=== PATIENT | female | born 1965 | race Caucasian/White ===

== ENCOUNTER 2017-06-14 05:55 | Emergency (ER) | payer OTHER ==
[~2017-06-14] VITALS: Ht 162.6 cm; Wt 88.0 kg
[~2017-06-14 05:55] MED LIST: B-COTAB41 PO; CHOL1CAP24 PO; FLUO.05%ST TOP; MULT-65 PO; OXYC1SOL5 PO
[2017-06-14 05:56] VITALS: BP 120/70; PULSE 71; RESP 16; TEMP 97.8; O2SAT 100
[2017-06-14] MEDS ORDERED: TIZA4CAP3 PO (06:09)
[2017-06-14] MEDS ORDERED: OMEP20TA93 PO (06:09)
[2017-06-14] MEDS ORDERED: ZOLO100T PO (06:09)
[2017-06-14] MEDS ORDERED: HYDR-3516 PO (06:11)
[2017-06-14] MEDS ORDERED: DICL75TA PO (06:11)
[2017-06-14] MEDS ORDERED: ACETAMINOPHEN/HYDROcodone 325 MG/5 MG TAB PO ONE (06:15)
--- NOTE | 2017-06-14 06:16 | PD ---
HPI Chief Complaint: Back/ Neck Pain or Injury Time Seen by Provider: 06:03 Travel History International Travel<30 days: No Contact w/Intl Traveler<30days: No History of Present Illness HPI 52-year-old white female presents to emergency department with complains of lower back pain today. She states that in the last 24 hours she developed pain in her right lower back. She's had a history of left lower back pain with sciatica in the past. She also states that she's been battling some neck pain for last 1-2 weeks. She was seen by her primary care doctor approximately one week ago given Zanaflex. She states that she normally follows up with her chiropractor. She denies any acute bowel or bladder changes. She has had some nausea but no vomiting. She denies any focal numbness or tingling. Pain is moderate to Be severe with movement. No alleviating factors. PFSH Past Medical History Arthritis: Yes Autoimmune Disease: No Cancer: No Cardiovascular Problems: No High Cholesterol: No Diabetes: No Patient Takes Glucophage: No Diminished Hearing: No Endocrine: No GERD: Yes Glaucoma: No Genitourinary: No Hepatitis: No Hiatal Hernia: No Hypertension: No Immune Disorder: No Musculoskeletal: No Neurologic: No Psychiatric: No Reproductive: No Respiratory: No Immunizations Current: Yes Seizures: No Thyroid Disease: No Influenza Vaccination: Yes ?: Not Menopausal: Yes : 0 Past Surgical History Abdominal Surgery: Yes (GASTRIC BYPASS 2010 WITH HIATAL HERNIA REPAIR) AICD: No Body Medical Devices: NONE Cardiac Surgery: No Cholecystectomy: Yes Ear Surgery: No Endocrine Surgery: No Eye Surgery: No Genitourinary Surgery: No Gynecologic Surgery: Yes (UTERINE ABLATION 2008) Joint Replacement: Yes Oral Surgery: Yes (TONSILLECTOMY/ADENOIDECTOMY) Pacemaker: No Thoracic Surgery: No Tonsillectomy: Yes Other Surgery: Yes Social History Alcohol Use: No Tobacco Use: No Substance Use: No Allergies-Medications (Allergen,Severity, Reaction): Coded Allergies: ciprofloxacin (Unverified Allergy, Severe, Rash, 06/14/17) Reported Meds & Prescriptions Reported Meds & Active Scripts Active Diclofenac Sodium DR (Diclofenac Sodium) 75 Mg Tabdr 75 Mg PO BID Hydrocodone-Acetaminophen 5-325 mg Tab 1 Tab PO Q4H PRN 5 Days Reported Omeprazole 20 Mg Tab 20 Mg PO BID Tizanidine (Tizanidine HCl) 4 Mg Cap 4 Mg PO BID Zoloft (Sertraline HCl) 100 Mg Tab 100 Mg PO DAILY Review of Systems General / Constitutional: No: Fever Eyes: No: Visual changes HENT: No: Headaches Cardiovascular: No: Chest Pain or Discomfort Respiratory: No: Shortness of Breath Gastrointestinal: Positive: Nausea, No: Vomiting, Abdominal Pain Genitourinary: No: Dysuria Musculoskeletal: Positive: Arthralgias, Limited ROM, Cramping, Pain, No: Edema Skin: No Rash Neurologic: No: Weakness Psychiatric: No: Depression Endocrine: No: Polydipsia Hematologic/Lymphatic: No: Easy Bruising Physical Exam Narrative GENERAL: Well-developed, well-nourished in no acute distress. Nontoxic appearing. HEAD: Normocephalic, atraumatic. EYES: Pupils equal round and reactive. Extraocular motions intact. No scleral icterus. No injection or drainage. ENT: TMs clear without erythema. The external auditory canals clear. Nose: clear . Posterior pharynx is pink and moist. No tonsillar edema or exudate. Uvula midline. Airway patent. NECK: Trachea midline.Supple, nontender, moves head freely. No central bony tenderness or spasm. CARDIOVASCULAR: Regular rate and rhythm without murmurs, gallops, or rubs. RESPIRATORY: Clear to auscultation. Breath sounds equal bilaterally. No wheezes , rales, or rhonchi. GASTROINTESTINAL: Abdomen soft, non-tender, nondistended. No hepato-splenomegaly , or palpable masses. No guarding. EXTREMITIES: No clubbing, cyanosis, or edema. No joint tenderness, effusion, or edema noted. BACK: No central bony tenderness, without deformity or crepitance. No flank tenderness. Patient complains of right lower paralumbar tenderness and no saddle anesthesia. Neurovascular intact. Data Data Last Documented VS Vital Signs Date Time Temp Pulse Resp B/P (MAP) Pulse Ox O2 Delivery O2 Flow Rate FiO2 06/14/17 05:56 97.8 71 16 120/70 (87) 100 Room Air Orders Orders Acetamin-Hydrocod 325-5 Mg ([place] 5-325 (06/14/17 06:15) Ed Discharge Order (06/14/17 06:11) MDM Medical Decision Making Medical Screen Exam Complete: Yes Emergency Medical Condition: Yes Medical Record Reviewed: Yes Differential Diagnosis MDM: High Differential diagnoses: Fracture, sprain, strain, HNP, nerve or vascular injury , epidural abscess, pilonidal cyst Narrative Course Patient is given 2 Lortab 5 mg by mouth. This is acute back pain Diagnosis Primary Impression: Acute back pain Qualified Codes: M54.5 - Low back pain Patient Instructions: Narcotic given in the ED, General Instructions Departure Forms: Tests/Procedures, Work Release Special Instructions: No work 3 days. Additional Instructions: Rest. Ice for the next 3 days followed by heat . Lortab and Voltaren. Continue your Zanaflex. Follow-up with a primary care doctor in 2-3 days. Return to the ER for emergencies. Med/Other Pt SpecificInfo: Prescription(s) given Scripts Diclofenac Sodium DR (Diclofenac Sodium DR) 75 Mg Tabdr 75 MG PO BID, #20 TAB 0 Refills Prov: Gadiel Klein MD 06/14/17 Hydrocodone-Acetaminophen (Hydrocodone-Acetaminophen) 5-325 mg Tab 1 TAB PO Q4H Y for PAIN for 5 Days, #20 TAB 0 Refills Prov: Gadiel Klein MD 06/14/17 Disposition: 01 DISCHARGE HOME Condition: Stable Walker Khan Jun 14, 2017 06:16
== END 2017-06-14 06:21 | disposition home or self-care (01) ==
LOC: NEPD 05:55
DX: M54.5 Low back pain (principal); M19.90 Unspecified osteoarthritis, unspecified site; Z98.84 Bariatric surgery status
CPT/HCPCS: 99284